=== PATIENT | female | born 1970 | race Caucasian/White ===

== ENCOUNTER 2017-03-28 16:27 | Emergency (ER) | payer SELFPAY ==
[2017-03-28 16:55] VITALS: BP 147/87
--- NOTE | 2017-03-28 16:55 | ED Physician Documentation ---
General Adult - HISTORIAN Historian: patient - HPI Stated Complaint: insect bite Chief Complaint: General Adult Additional Information: Insect bite left thigh for 2-3 days. Did not see the bug. Had red streaks running distally. Got better after soak in epsom salts, but red again today. - ROS CONST: no problems - PAST HX Past History: none Other History: none - SOCIAL HX Smoking History: cigarettes - FAMILY HX Family History: No - REVIEWED ASSESSMENTS Nursing Assessment Reviewed: Yes Vitals Reviewed: Yes General Adult Physical Exam - PHYSICAL EXAM GENERAL APPEARANCE: mild distress (anxious, non-stop talk, doesn't want to give urine specimen) EENT: eye inspection normal, ENT inspection normal NECK: normal inspection, supple RESPIRATORY: no resp distress RECTAL: deferred BACK: other (movements w/o pain) SKIN: warm/dry, normal color (except 3 mm red macule/vesicle prox 1/3 alexandra medial left thigh with surrounding 3-4 cm band or erythema, 1.5 cm soft induration. No fluctuance.) EXTREMITIES: no evidence of injury NEURO: CN's nml as tested, motor nml, sensation nml Discharge Clincal Impression: Insect bite Qualifiers: Encounter type: initial encounter Qualified Code(s): W57.XXXA - Bitten or stung by nonvenomous insect and other nonvenomous arthropods, initial encounter Referrals: Primary Doctor,No [Primary Care Provider] - 2 Days Additional Instructions: Warm compresses to the area several times a day. Take all the antibiotics as prescribed until they are completely gone. See your provider if you are not getting better in 2 days. Condition: Good Disposition: 01 HOME, SELF-CARE Decision to Admit: NO Decision Time: 16:55
== END 2017-03-28 17:03 | disposition home or self-care (01) ==
LOC: ED 16:27
DX: S70.362A Insect bite (nonvenomous), left thigh, initial encounter (principal); W57.XXXA Bitten or stung by nonvenomous insect and other nonvenomous arthropods, initial encounter; Y93.9 Activity, unspecified; Y99.9 Unspecified external cause status
CPT/HCPCS: 99283